=== PATIENT | female | born 1945 | race Two or more races ===

== ENCOUNTER 2024-08-13 15:43 | Emergency (ER) | payer MEDICARE, MEDICAID, SELFPAY ==
[2024-08-13 15:53] VITALS: BP 70/45; BP 80/45; PULSE 64; RESP 16; TEMP 36.7; O2SAT 98; BMI 26.5
--- NOTE | 2024-08-13 15:58 | EKG_ITS ---
[facility] Test Date: 2024-08-13 Pat Name: LAINA COYNE Department: Room: - Gender: Female Gasfitter: : 1945 Requested By: ED Temporary Provider Order Number: [id number] Reading MD: ED Temporary Provider Measurements Intervals [place] Rate: 57 P: 74 DE: 169 QRS: -30 QRSD: 99 T: 76 QT: 420 QTc: 411 Interpretive Statements SINUS BRADYCARDIA BORDERLINE LEFT AXIS DEVIATION [QRS AXIS < -20] NONSPECIFIC ST & T-WAVE ABNORMALITY Compared to ECG 03/15/2022 11:45:41 T-wave abnormality now present Sinus rhythm no longer present Left ventricular hypertrophy no longer present ST (T wave) deviation no longer present /store/S0/[id number]
--- NOTE | 2024-08-13 15:58 | XR_ITS ---
Examination: AP chest single view Technique: AP portable upright chest single view Exam date and time: August 13, 2024 1633 hrs. Indications: Hypotension altered mental status today. Findings: Mild prominence left ventricle No aspiration pneumonia Reduced inspiratory effort No pulmonary edema Impression: No aspiration pneumonia
[2024-08-13] MEDS: SODIUM CHLORIDE 0.9% 1000 ML 1,000 ML 999 ML IV (16:23)
--- NOTE | 2024-08-13 16:27 | XR_ITS ---
Examination: CT brain head without contrast. 2-D sagittal coronal reconstructions Date and time of exam:August 13, 2024 at 1644 hrs. Comparison 05/05/2024 Indications: Confusion altered mental status today CTDI: vol (mGy):47.7 DLP: (mGycm):193 Technique: Multiple CT axial sections of the brain have been obtained, 5 mm slice thickness. Contrast has not been administered. 2-D sagittal, coronal reconstructions have been obtained Low dose protocols were performed. One or more of the following dose reduction techniques were used; automated exposure control, adjustment of the mA and/or KV according to patient size, use of iterative reconstruction technique. Findings: No significant ventricular enlargement. Intra-axial or extra-axial hemorrhage density is not seen. No mass effect or midline shift Basal cisterns are not remarkable. Fourth ventricle is midline. Cranial vault intact. Impression: Negative for acute hemorrhage, mass effect or midline shift Advise clinical correlation follow-up accordingly
--- NOTE | 2024-08-13 16:29 | EDNOTE_ITS ---
ED Dizzyness RME/HPI General Chief Complaint: Dizziness Stated Complaint: DISORIENTED WITH HYPOTENSION; HX PARKINSONS/DAREK Time Seen by Provider: 08/13/24 16:10 Arrival date/time: 08/13/24 15:43 This is a 79-year-old female that is brought in by granddaepi Katz who is a caregiver. Per caregiver patient was sitting at the dining room table and she was about to move her grandmother back to her room and she was confused. Patient also was very weak. At the time granddaughter checked her blood pressu re and it was low at 70/42. Patient has baseline dementia and Parkinson's but she was more disoriented than usual. Patient denies any other symptoms prior to this episode. Upon arrival to the emergency room patient is hypotensive. There is no focal deficits. Patient has a history of Parkinson's dementia, high blood pressure, diabetes, hyperlipidemia, diabetic retinopathy,. Related Data Home Medications ?Medication ?Instructions ?Recorded ?Confirmed glipizide 10 mg tablet 10 mg PO BID 04/22/18 09/18/21 levothyroxine 50 mcg capsule 50 mcg PO QDAY 04/22/18 09/18/21 aspirin 81 mg tablet,delayed 81 mg PO QDAY 09/18/21 09/18/21 release celecoxib 200 mg capsule 200 mg PO BIDWM 09/18/21 09/18/21 ferrous sulfate 325 mg (65 mg 325 mg PO QDAY 09/18/21 09/18/21 iron) tablet (FeroSul) gabapentin 300 mg capsule 300 mg PO BID 09/18/21 09/18/21 lisinopril 20 mg tablet 20 mg PO QDAY 09/18/21 09/18/21 oxcarbazepine 300 mg tablet 1 mg PO TID 09/18/21 09/18/21 pravastatin 10 mg tablet 10 mg PO QDAY 09/18/21 09/18/21 Previous Rx's ?Medication ?Instructions ?Recorded levofloxacin 750 mg tablet 750 mg PO QDAY #7 tabs 09/24/21 methylprednisolone 4 mg tablets in 4 mg PO QAM #21 tabs 03/15/22 a dose pack (Medrol (Triston)) bisacodyl 10 mg rectal suppository 10 mg IA .Twice daily PRN 05/23/24 (Dulcolax (bisacodyl)) constipation #12 ea magnesium hydroxide 400 mg/5 mL 20 ml PO TID PRN constipation #355 05/23/24 oral suspension (Milk of Magnesia) mL cefuroxime axetil 500 mg tablet 500 mg PO BID #14 tabs 06/02/24 Allergies Allergy/AdvReac Type Severity Reaction Status Date / Time No Known Allergies Allergy Verified 08/13/24 15:46 Review of Systems Review of Systems Systems Reviewed: All systems reviewed, normal except as documented Past Medical History Past Medical History CARDIAC: Positive Hypercholesterolemia and Hypertension; Negative Cardiac Disorders or Congestive Heart Failure RESPIRATORY: Negative Chronic Obstructive Pulmonary Disease (COPD) or Asthma GENITOURINARY: Negative Renal Disease ENDOCRINE: Positive Diabetes Mellitus Type 2 and Hypothyroidism; Negative Diabetes Mellitus Type 1 HEMATOLOGIC: Negative Sickle Cell Disease Family History FAMILY HISTORY: Positive Family Cardiac Disorders Surgical History SURGICAL: Positive Section Social History SMOKING STATUS: Never smoker SECOND HAND EXPOSURE: No SUBSTANCE USE: does not use ED Exam General General appearance: Present alert and in no apparent distress Head Head exam: Present atraumatic Eye Eye exam: Present normal appearance, PERRL and EOMI ENT ENT exam: Present normal exam, normal oropharynx and mucous membranes moist Neck Neck exam: Present normal inspection, full ROM and trachea midline Chest Chest inspection: Present normal inspection and symmetric chest wall rise Respiratory Respiratory exam: Present normal lung sounds bilaterally Cardiovascular Cardiovascular exam: Present regular rate, normal rhythm and normal heart sounds Abdominal Exam Abdominal exam: Present soft Extremities Exam Extremities exam: Present normal inspection and full ROM Back Exam Back exam: Present normal inspection and full ROM Neurological Exam Neurological exam: Present alert, oriented X3 and CN II-XII intact Psychiatric Psychiatric exam: Present normal affect and normal mood Skin Skin exam: Present warm, dry, intact and normal color Course Quality Measures none Orders Category Date Time Status EKG (ED ONLY) *Do not use* NOW Care 08/13/24 16:07 Completed IV [Insert IV] STAT Care 08/13/24 16:13 Completed In and Out Catheter X1 Care 08/13/24 17:[address] head/brain wo con Stat Exams 08/13/24 16:27 Completed EKG (ED Only) Stat Exams 08/13/24 15:58 Draft XR chest 1V portable Stat Exams 08/13/24 15:58 Completed B-Type Natriuretic Peptide Stat Lab 08/13/24 16:57 Completed CBC Stat Lab 08/13/24 16:57 Completed Comprehensive Metabolic Panel Stat Lab 08/13/24 16:57 Completed INR [Prothrombin Time with INR] Stat Lab 08/13/24 16:57 Completed Troponin I Stat Lab 08/13/24 16:57 Completed Urinalysis Stat Lab 08/13/24 18:07 Completed Urine Culture Stat Lab 08/13/24 18:04 Completed Sodium Chloride 0.9% 1000 ml [Ns] 1,000 ml Med 08/13/24 16:13 Discontinued IV 999 mls/hr Vital Signs Vital signs: Vital Signs Temperature 98.1 F 08/13/24 15:53 Pulse Rate 64 08/13/24 15:53 Respiratory Rate 16 08/13/24 15:53 Blood Pressure 70/45 L 08/13/24 15:53 Pulse Oximetry (%) 98 08/13/24 15:53 Oxygen Delivery Method Room Air 08/13/24 15:53 Procedures -ED EKG Interpretation #1: Date of EK08/13/24 Time of EK:15 Rate: 57 Interpretation: Interpreted by me (Sinus bradycardia with borderline left axis deviation) EKG Impression: Normal sinus rhythm, No ectopy and Normal intervals Dizziness MDM Narrative MDM Narrative:: ct head shows: Findings: No significant ventricular enlargement. Intra-axial or extra-axial hemorrhage density is not seen. No mass effect or midline shift Basal cisterns are not remarkable. Fourth ventricle is midline. Cranial vault intact. Impression: Negative for acute hemorrhage, mass effect or midline shift Advise clinical correlation follow-up accordingly Chest x ray: Findings: Mild prominence left ventricle No aspiration pneumonia Reduced inspiratory effort No pulmonary edema Impression: No aspiration pneumonia Patient was hypotensive on arrival but was given a liter of IV fluids and now seems to have resolved. Patient does take blood pressure medication at home. I advised family to take blood pressure at home different times the day because maybe her blood pressure medication may need to be adjusted. CBC had a white count of 9.8 hemoglobin of 12.6 and a hematocrit of 35.5 neutrophil 86 BMP had a sodium of 130 and a chloride of 93. Otherwise BMP unremarkable urine showed some bacteria which we can culture but no RBCs no white blood cells no leukocyte Estrace. Per patient granddaughter she did not eat breakfast today and sometimes he have to fight with her to drink fluids. I encouraged her to drink fluids such as water or juice throughout the day. I explained at length to go over medications with primary provider. Patient mental status at baseline. Patient talking to staff and stating she feels better. Blood pressure is 120/90. I explained to family at length that medications needed to be reviewed with primary provider because maybe they may need to change some of the blood pressure medications given to patient. Patient data External records reviewed:: [facility] previous records Clinical information provided by:: patient Social determinants that could affect healthcare access:: none Patient has the following chronic illnesses:: see note How is presenting disease/condition affected by chronic disease/condition?: exacerbated by Evaluation data The following diagnostics were reviewed and interpreted by me:: lab results, radiology exam(s) and EKG tracing(s) Lab and/or radiology exams considered but not ordered:: none Interpretation Summary: see note Medications / Prescriptions Medications or Prescriptions considered but not ordered:: none Medication administrations:: Medication Administration History Discontinued Medications Sodium Chloride (Ns) 1,000 mls @ 999 mls/hr IV .Q1H1M ONE Stop: 08/13/24 17:13 Last Infusion: 08/13/24 18:06 Dose: Infused Documented By: Admin: 08/13/24 16:23 Dose: 999 mls/hr Documented By: JACQUELINE see [facility] Consultations Consultation(s) initiated? (list below): No Diagnosis Most likely diagnosis given after review of the tests above:: dehydration or perhaps too much blood pressure medication Admission Indicated Admission indicated?: not indicated Admission Request Was there a request for admission?: No Disposition Plan Disposition Plan: Discharge Discharge Attestation Discharge Attestation: The patient and all family members were given an opportunity to ask questions and understood the discharge instructions. Discharge instructions specifically effects, indications for sooner follow up or return to the emergency department, and the expected course of current diagnosis. Patient condition: Stable Discharge Plan Plan Patient Disposition: HOME (Self Care) Patient condition on transfer: Stable Prescriptions/Referrals Prescriptions/Med Rec: No Action levothyroxine 50 mcg Capsule 50 mcg PO QDAY glipizide 10 mg Tablet 10 mg PO BID celecoxib 200 mg capsule 200 mg PO BIDWM Patient Comments: TAKE 1 CAPSULE BY MOUTH TWICE DAILY WITH FOOD lisinopril 20 mg tablet 20 mg PO QDAY Patient Comments: TAKE 1 TABLET BY MOUTH DAILY oxcarbazepine 300 mg tablet 1 mg PO TID Patient Comments: TAKE 1 TABLET BY MOUTH THREE TIMES DAILY aspirin 81 mg tablet,delayed release (DR/EC) 81 mg PO QDAY Patient Comments: TAKE 1 TABLET BY MOUTH EVERY DAY pravastatin 10 mg tablet 10 mg PO QDAY Patient Comments: TAKE 1 TABLET BY MOUTH EVERY DAY ferrous sulfate [FeroSul] 325 mg (65 mg iron) tablet 325 mg PO QDAY Patient Comments: TAKE 1 TABLET BY MOUTH EVERY DAY gabapentin 300 mg capsule 300 mg PO BID Patient Comments: TAKE 1 CAPSULE BY MOUTH TWICE DAILY levofloxacin 750 mg tablet 750 mg PO QDAY Qty: 7 0RF methylprednisolone [Medrol ([place])] 4 mg tablets,dose pack 4 mg PO QAM Qty: 21 0RF bisacodyl [Dulcolax (bisacodyl)] 10 mg suppository 10 mg IA .Twice daily PRN (Reason: constipation) Qty: 12 0RF magnesium hydroxide [Milk of Magnesia] 400 mg/5 mL suspension 20 ml PO TID PRN (Reason: constipation) Qty: 355 0RF cefuroxime axetil 500 mg tablet 500 mg PO BID Qty: 14 0RF Referrals: Arian Hong MD [Primary Care Provider] - In 1 week Problem List Clinical Impression: Dehydration, Acute hyponatremia Patient/Caregiver Discharge Instructions Discharge Activity: activity as tolerated Education Materials: ED Dehydration (Adult) Additional Instructions: Follow-up with primary provider in 1 to 2 days. Come back to the emergency room if symptoms change or worsen. Discussed with primary provider about episode of low blood pressure. Print Language: Monegasque Stand Alone Forms: Zenia Award Info., Patient Portal Info Letter PA/ANGIE Supervising Physician PA/FILM CUTTER Supervising Physician: jose alberto
[2024-08-13 16:30] VITALS: BP 99/57; PULSE 56; RESP 16; O2SAT 96
[2024-08-13 16:53] LABS: Basophils % (Auto) 0 % (0-2.5); Eosinophils % (Auto) 0 % (0-10); Hematocrit 35.5 % (36.0-46.0); Hemoglobin 12.6 g/dL (12.0-16.0); Immature Granulocytes % (Auto) 0 % (0-0); Immature Granulocytes Auto 0.02 Thou/mm3 (0.00-0.00); Lymphocytes # (Auto) 0.6 Thou/mm3 (1.0-4.8); Lymphocytes % (Auto) 6 % (10-50); Mean Corpuscular HGB Conc 35.5 g/dl (31.0-37.0); Mean Corpuscular Hemoglobin 31.3 pg (25.0-35.0); Mean Corpuscular Volume 88 fL (80-100); Monocytes # (Auto) 0.7 Thou/mm3 (0.0-0.8); Monocytes % (Auto) 7 % (0-12); Neutrophils # (Auto) 8.4 Thou/mm3 (1.8-7.7); Neutrophils % (Auto) 86 % (37-80); Nucleated Red Blood Cell % 0 /100 WBC (0); Platelet Count 158 Thou/mm3 (140-440); RDW Standard Deviation 41.9 fL (36.4-46.3); Red Blood Count 4.02 Miln/mm3 (4.00-5.20); White Blood Count 9.8 Thou/mm3 (3.6-11.0)
[2024-08-13 17:03] LABS: Alanine Aminotransferase 16 U/L (10-49); Albumin, Serum 4.8 gm/dL (3.4-4.8); Albumin/Globulin Ratio 2.1 (1.2-2.2); Alkaline Phosphatase 107 U/L (46-116); Anion Gap 8 (7-16); Aspartate Amino Transferase 21 U/L (0-34); BUN/Creatinine Ratio 15 Ratio (12-20); Bilirubin,Total 0.5 mg/dL (0.3-1.2); Blood Urea Nitrogen 15 mg/dL (9-23); Calcium 9.7 mg/dL (8.3-10.6); Calcium (Corrected) 9.7 mg/dL (8.5-10.1); Carbon Dioxide 28.6 mMol/L (20.0-31.0); Chloride 93 mMol/L (98-107); Estimated Creatinine Clearance 41.3 mL/min (>60); Globulin 2.3 gm/dL (2.3-3.5); Glucose 148 mg/dL (74-106); Osmolality,Calculated 264 (275-295); Potassium 4.2 mMol/L (3.4-5.1); Sodium 130 mMol/L (136-145); Total Protein 7.1 gm/dL (5.7-8.2); Troponin I < 0.020 ng/mL (0.0-0.045); eGFR 58 See Note
[2024-08-13 17:24] LABS: B-Type Natriuretic Peptide 89 pg/mL (0-100)
[2024-08-13 17:29] LABS: Prothrombin Time 11.3 Seconds (9.0-12.2)
[2024-08-13 18:23] LABS: Collection Type, Urine Clean Catch; RBC,Urine 0 /hpf (0-3); WBC,Urine 0 /hpf (0-5)
[2024-08-13 18:38] LABS: Bacteria,Urine 4+; Bilirubin,Urine Negative (Negative); Blood,Urine Negative (Negative); Clarity,Urine Turbid (Clear/Hazy); Color,Urine Yellow (Lt Yel-Yel); Glucose, Urine Negative (Negative); Hyaline Casts,Urine < 1 /hpf (0-1); Ketones,Urine Negative (Negative); Leukocyte Esterase,Urine Negative (Negative); Nitrite,Urine Negative (Negative); Protein,Urine Negative (Neg - Trace); Specific Gravity,Urine 1.009 (1.001-1.035); Squamous Epithelial Cell,Urine 1 /hpf (0-5); Urobilinogen,Urine Negative mg/dL (0.0-1.0)
== END 2024-08-13 20:31 | disposition home or self-care (01) ==
PROVIDERS: Nurse Practitioner Family; Emergency Provider Emergency Medicine; PCP Family Medicine
DX: E86.0 Dehydration (principal); E87.1 Hypo-osmolality and hyponatremia; G20.A1 Parkinson's disease without dyskinesia, without mention of fluctuations; F02.80 Dementia in other diseases classified elsewhere, unspecified severity, without behavioral disturbance, psychotic disturbance, mood disturbance, and anxiety; E11.319 Type 2 diabetes mellitus with unspecified diabetic retinopathy without macular edema; R00.1 Bradycardia, unspecified; I95.9 Hypotension, unspecified; Z79.84 Long term (current) use of oral hypoglycemic drugs; Z79.52 Long term (current) use of systemic steroids; E78.00 Pure hypercholesterolemia, unspecified; I10 Essential (primary) hypertension
CPT/HCPCS: 51701; 36415; 70450; 71045; 80053; 81001; 83880; 84484; 85025; 85610; 87077; 87086; 87186; 93005; 96360; 96361; 99284; J7030

== ENCOUNTER 2024-08-29 10:58 | Day surgery (SDC) | payer MEDICARE, MEDICAID, SELFPAY ==
--- NOTE | 2024-08-26 12:44 | EKG_ITS ---
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
[2024-08-26 14:31] VITALS: BMI 26.2
[2024-08-26 15:21] LABS: Basophils % (Auto) 1 % (0-2.5); Eosinophils # (Auto) 0.2 Thou/mm3 (0.0-0.5); Eosinophils % (Auto) 3 % (0-10); Hematocrit 33.8 % (36.0-46.0); Immature Granulocytes % (Auto) 0 % (0-0); Immature Granulocytes Auto 0.02 Thou/mm3 (0.00-0.00); Lymphocytes # (Auto) 1.1 Thou/mm3 (1.0-4.8); Lymphocytes % (Auto) 17 % (10-50); Mean Corpuscular HGB Conc 35.5 g/dl (31.0-37.0); Mean Corpuscular Hemoglobin 31.3 pg (25.0-35.0); Mean Corpuscular Volume 88 fL (80-100); Monocytes # (Auto) 0.5 Thou/mm3 (0.0-0.8); Monocytes % (Auto) 8 % (0-12); Neutrophils # (Auto) 4.3 Thou/mm3 (1.8-7.7); Neutrophils % (Auto) 70 % (37-80); Nucleated Red Blood Cell % 0 /100 WBC (0); Platelet Count 148 Thou/mm3 (140-440); RDW Standard Deviation 40.4 fL (36.4-46.3); Red Blood Count 3.83 Miln/mm3 (4.00-5.20); White Blood Count 6.2 Thou/mm3 (3.6-11.0)
[2024-08-26 15:33] LABS: Anion Gap 7 (7-16); BUN/Creatinine Ratio 17 Ratio (12-20); Blood Urea Nitrogen 12 mg/dL (9-23); Calcium 9.4 mg/dL (8.3-10.6); Chloride 94 mMol/L (98-107); Creatinine (Component) 0.7 mg/dL (0.6-1.3); Estimated Creatinine Clearance 58.6 mL/min (>60); Glucose 60 mg/dL (74-106); Osmolality,Calculated 258 (275-295); Potassium 4.1 mMol/L (3.4-5.1); Sodium 130 mMol/L (136-145); eGFR > 60 See Note
[2024-08-26 15:35] LABS: COVID-19 Antigen (In-House) Negative (Negative)
[2024-08-26 15:41] LABS: INR 1.1 (0.9-1.3); Partial Thromboplastin Time 26.5 Seconds (22.0-36.0); Prothrombin Time 11.5 Seconds (9.0-12.2)
[2024-08-29] VITALS (13 sets, daily range): BP systolic 95–191; BP diastolic 68–93; PULSE 48–62; RESP 11–21; TEMP 36.4–36.6; O2SAT 96–99
[2024-08-29] MEDS: DIAZEPAM 5 MG TABLET PO (11:57)
--- NOTE | 2024-08-29 12:48 | ESOP_ITS ---
Cardiac Cath Procedure Procedure Narrative Date of the procedure 04/29/2025 Title of the procedure 1. Left heart catheterization 2. Left coronary angiogram 3. Right coronary angiogram 4. Left ventriculogram 5. Conscious sedation 6. Radiographic interpretation supervision 7. Ultrasound guidence for Right radial access Indication for the procedure This is a 79-year-old female with past medical history of hypertension hyperlipidemia Diabetes planning to undergo gallbladder surgery Patient did undergo further evaluation with stress testing which shows inferolateral ischemia Cardiac catheter cholangiogram recommended Procedure This is done in the cardiac lab under continuous electrocardiographic monitoring Intermittent blood pressure monitoring right radial arterial access obtained using modified Seldinger technique 6 Mexican radial sheath was placed under ultrasound guidence TIG catheter was used for selective injection of the Left coronary artery TIG cather was used for selective injection of the Right coroanry artery TIG cather was used for LV gram Findings Hemodynamics Left ventricular systolic function is 55% Left ventricular end-diastolic pressure is 16 mmHg Gradient across the aortic valve is 0 mm gradient Coronary anatomy Right dominance Left main coronary artery is normal Left anterior descending artery is luminal irregularities in the mid to distal region Diagonal vessel is showing luminal regularities Left circumflex artery is chronically occluded 100% at the proximal region Obtuse marginal vessel is not visualized Right coronary artery is luminal irregularities Posterior descending artery is 90% lesion in the proximal region Right coronary artery supplies occluded circumflex with collaterals 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
--- NOTE | 2024-08-29 14:21 | PC.NURSE ---
Per Cynthia Katz patients blood pressure is very labile and is happy with blood pressure if its under 200 systolic. Claims 3 weeks ago patient was brought to the emergency department with hypotension and AMS; systolic BP was in the 70's with no change in her medications.
== END 2024-08-29 16:00 | disposition home or self-care (01) ==
PROVIDERS: PCP Family Medicine; Referring Provider Internal Medicine; Visit Provider Internal Medicine
PROC: (CPT 93458; principal; 2024-08-29 13:00)
DX: I25.118 Atherosclerotic heart disease of native coronary artery with other forms of angina pectoris (principal); I10 Essential (primary) hypertension; E78.5 Hyperlipidemia, unspecified; Z01.810 Encounter for preprocedural cardiovascular examination; E11.9 Type 2 diabetes mellitus without complications
CPT/HCPCS: 93458; 36415; 80048; 85025; 85610; 85730; 87811; 93005; 99152; 99153; A4216; A4649; C1887; C1894; J0171; J0461; J0583; J1643; J2250; J2310; J2371; J3010; J3490; Q9967; A9270; J2305

== ENCOUNTER 2024-09-01 06:30 | Day surgery (SDC) | payer MEDICARE, MEDICAID, SELFPAY ==
[2024-08-31 09:18] VITALS: BMI 27.8
[2024-08-31 11:12] LABS: Basophils % (Auto) 0 % (0-2.5); Eosinophils # (Auto) 0.2 Thou/mm3 (0.0-0.5); Eosinophils % (Auto) 3 % (0-10); Hematocrit 34.5 % (36.0-46.0); Hemoglobin 11.9 g/dL (12.0-16.0); Immature Granulocytes % (Auto) 0 % (0-0); Immature Granulocytes Auto 0.01 Thou/mm3 (0.00-0.00); Lymphocytes # (Auto) 0.9 Thou/mm3 (1.0-4.8); Lymphocytes % (Auto) 16 % (10-50); Mean Corpuscular HGB Conc 34.5 g/dl (31.0-37.0); Mean Corpuscular Hemoglobin 30.8 pg (25.0-35.0); Mean Corpuscular Volume 89 fL (80-100); Monocytes # (Auto) 0.4 Thou/mm3 (0.0-0.8); Monocytes % (Auto) 8 % (0-12); Neutrophils # (Auto) 3.9 Thou/mm3 (1.8-7.7); Neutrophils % (Auto) 72 % (37-80); Nucleated Red Blood Cell % 0 /100 WBC (0); Platelet Count 133 Thou/mm3 (140-440); RDW Standard Deviation 41.8 fL (36.4-46.3); Red Blood Count 3.86 Miln/mm3 (4.00-5.20); White Blood Count 5.4 Thou/mm3 (3.6-11.0)
[2024-08-31 11:18] LABS: Prothrombin Time 11.3 Seconds (9.0-12.2)
[2024-08-31 11:31] LABS: Alanine Aminotransferase 10 U/L (10-49); Albumin, Serum 4.6 gm/dL (3.4-4.8); Albumin/Globulin Ratio 1.9 (1.2-2.2); Alkaline Phosphatase 97 U/L (46-116); Anion Gap 8 (7-16); Aspartate Amino Transferase 17 U/L (0-34); BUN/Creatinine Ratio 20 Ratio (12-20); Bilirubin,Total 0.4 mg/dL (0.3-1.2); Blood Urea Nitrogen 16 mg/dL (9-23); Calcium 9.6 mg/dL (8.3-10.6); Calcium (Corrected) 9.6 mg/dL (8.5-10.1); Carbon Dioxide 28.7 mMol/L (20.0-31.0); Chloride 96 mMol/L (98-107); Creatinine (Component) 0.8 mg/dL (0.6-1.3); Estimated Creatinine Clearance 48.6 mL/min (>60); Globulin 2.4 gm/dL (2.3-3.5); Glucose 134 mg/dL (74-106); Osmolality,Calculated 269 (275-295); Potassium 4.3 mMol/L (3.4-5.1); Sodium 133 mMol/L (136-145); eGFR > 60 See Note
--- NOTE | 2024-08-31 11:36 | SUR.PREOP ---
Pt has parkinson's and dementia that affects pt's short term memory. Pt answered correctly, her name, date and what surgery she is having, granddaughter stated pt forgets when and what meds to take and forgets to eat so pt moved in with family.
--- NOTE | 2024-08-31 14:38 | SUR.PREOP ---
Pt's daughter Luanne Gillette phone # [phone], stated if need it she is available by phone or if need it to come in she will come.
--- NOTE | 2024-08-31 14:40 | SUR.PREOP ---
Cardiac history and records reviewed with Dr Hall.
[2024-09-01] VITALS (8 sets, daily range): BP systolic 156–169; BP diastolic 81–90; PULSE 55–76; RESP 12–17; TEMP 36.4–36.6; O2SAT 98–100; BMI 27.8
--- NOTE | 2024-09-01 09:25 | ESOP_ITS ---
Date of Procedure 09/01/24 Pre Op Diagnosis Symptomatic cholelithiasis Post Op Diagnosis Cholelithiasis with cholecystitis Procedure Laparoscopic cholecystectomy Findings Moderately distended gallbladder with gallstones and chronic cholecystitis Procedure Description Patient was brought into the operating room in supine position. After adm inistration of general endotracheal anesthesia abdomen was prepped and draped in standard surgical manner. A Veress needle was inserted through the umbilicus and pneumoperitoneum was obtained up to 15 mmHg. The Veress needle was then removed, a 5 mm supraumbilical incision was made and the 5mm trocar was inserted. Laparoscopic camera was placed. Under direct visualization a laparoscopic camera a 10 mm trocar was placed in subxiphoid and two 5 mm trocars placed in right upper quadrant. The gallbladder was identified and was noted to be moderately distended with gallstones and chronic cholecystitis. It was retracted cephalad and laterally. Dissection started near the infundibulum of gallbladder where cystic duct and gallbladder junction clearly identified. The cystic duct was circumferentially dissected off the peritoneum and surrounding inflammatory tissue. The critical view of safety was clearly demonstrated. Cystic duct was then divided between 2 endoclips proximally and one distally. The cystic artery was similarly dissected and divided. The gallbladder was then from the liver bed using electrocautery. The gallbladder was then placed inside an Endo Catch and removed from the abdomen utilizing subxiphoid trocar site. The area was copiously and thoroughly washed and irrigated, all the fluid was suctioned and the suction fluid returned clear. Hemostasis achieved using electrocautery. Endoclips noted be in place and intact without any bleeding or any leakage. Hemostasis was adequate and satisfactory. The subxiphoid trocar sites fascial defect was closed with 0 Vicryl using Endo Closure device. Instruments and trocars removed, pneumoperitoneum was evacuated and the incisions closed with 4-0 Monocryl in subcuticular fashion. Instrument needle and sponge counts were all reported to be correct X2. Patient tolerated the procedure well, was extubated, breathing spontaneously and without difficulty and was transferred to postanesthesia care in stable condition. Anesthesia GETA and local Pathology / specimen Other (Gallbladder and contents) Estimated Blood Loss 10 Condition Stable Disposition PACU Surgeon Acosta Juarez MD Surgical Staff Operation Date: 09/01/24 08:30 Case Staff Anesthesiologist: Rocky Hall RNemergency department technician: Regine Gusman
--- NOTE | 2024-09-01 09:31 | SUR.PHASEI ---
0931: Pt. wakes to name then drifts back to sleep, vitals stable, breathing unlabored, no complaint of pain or nausea, x4 dermabond sites to ABD CDI, no active bleed noted, report received from MD Hall and Zulay COLLADO.
--- NOTE | 2024-09-01 10:30 | SUR.PHASEII ---
1030: Pt. AAOx4, vitals stable, breathing unlabored, no complaint of pain or nausea, x4 dermabond sites to ABD CDI, no active bleed noted, pt. tolerated sips of water well, pt. ambulated to wheelchair with steady gait and no assist, no complications. Gave discharge instructions to the pt. and her ride using translator and interpreter, both verbalized understanding and had no further questions. Pt. left with all personal belongings.
--- NOTE | 2024-09-02 17:23 | PD.ANESPROG ---
Documentation for date of: 09/02/24 POST ANESTHESIA NOTE: Patient had GETA for lap cholecystectomy yesterday. Pre-op, she was accompanied by her grand daughter and her daughter was on the phone. She has h/o CAD, on medical mx, cardiac cleared, and also h/o Parkinson. I discussed with them the available cardiology report about her CAD and possible risk of intra-op and post op cardiac event including VT and they agreed to proceed. I also noted Reglan on her medication list, which the grand daughter endorsed that she takes daily for nausea. I educated her that Reglan could worsen her Parkinson sx and that they should discuss this with her PCP and neurologist. I just called the grand daughter for follow up and she denied patient having any problems from anesthesia and had no further questions. Rocky Hall MD Anesthesia Progress Note Progress Note Most recent Vital Signs: Last Vital Signs Temp 97.7 F 09/01/24 10:26 Pulse 68 09/01/24 10:26 Resp 16 09/01/24 10:26 BP 163/88 H 09/01/24 10:26 Pulse Ox 100 09/01/24 10:26 O2 Flow Rate 2 09/01/24 09:41
== END 2024-09-01 10:30 | disposition home or self-care (01) ==
PROVIDERS: PCP Family Medicine; Referring Provider Surgery; Visit Provider Surgery
PROC: 0FT44ZZ Resection of Gallbladder, Percutaneous Endoscopic Approach (ICD-10-PCS; CPT 47562; principal; 2024-09-01 08:30)
DX: K80.10 Calculus of gallbladder with chronic cholecystitis without obstruction (principal)
CPT/HCPCS: 47562; 36415; 80053; 85025; 85610; A4217; A4649; J0131; J0694; J1100; J2371; J2704; J2710; J3010; J3490; J1596; J1805

== ENCOUNTER 2025-04-24 06:19 | Emergency (ER) | payer MEDICARE, MEDICAID, SELFPAY ==
[2025-04-24 06:28] VITALS: BP 193/87; BP 199/96; PULSE 69; RESP 18; TEMP 37.1; O2SAT 96; BMI 20.9
--- NOTE | 2025-04-24 06:29 | EKG_ITS ---
[facility] Test Date: 2025-04-24 Pat Name: LAINA COYNE Department: Room: - Gender: Female Time Broker: : 1945 Requested By: Tj Chand Order Number: [id number] Reading MD: Tj Chand Measurements Intervals [place] Rate: 61 P: 31 SC: 149 QRS: -19 QRSD: 109 T: 31 QT: 388 QTc: 393 Interpretive Statements SINUS RHYTHM POSSIBLE ANTERIOR MYOCARDIAL INFARCTION , PROBABLY OLD [30 ms Q WAVE IN V3/V4, OR R < 0.2 mV IN V4] Compared to ECG 08/26/2024 14:12:23 Sinus bradycardia no longer present Myocardial infarct finding still present /store/S0/[id number]/ecg/[id number].pdf
--- NOTE | 2025-04-24 06:29 | XR_ITS ---
Examination: CT maxillofacial, without intravenous contrast. 2-D sagittal reconstructions. 3-D reconstructions. Date and time of exam:April 24, 2025, 0714 hrs. Indications: Patient fell out of bed today with injury to the face, facial pain CTDI: vol (mGy):27.3 DLP: (mGycm):527 Technique: Multiple axial images of maxillofacial region, 3.0 mm slice thickness. 2-D sagittal and coronal reconstructions. 3-D reconstructions. Low dose protocols were performed. One or more of the following dose reduction techniques were used; automated exposure control, adjustment of the mA and/or KV according to patient size, use of iterative reconstruction technique. Findings: Frontal bone frontal sinuses intact. Orbital rims intact. The optic globes exhibit symmetry. There is soft tissue swelling lateral and above the left orbit and adjacent to the left frontal bone No nasal bone fracture No depression zygomatic arches. Pterygoid plates maxilla intact The mandible is severely obscured by patient motion, no gross fracture Impression: Limited study No acute facial fracture depicted.
--- NOTE | 2025-04-24 06:29 | XR_ITS ---
Examination: CT brain head without contrast. 2-D sagittal coronal reconstructions Date and time of exam:April, 0714 hrs. Comparison August 13, 2024 Indications: Patient fell out of bed today with injury to the head, head pain. CTDI: vol (mGy):46.9. DLP: (mGycm):916. Technique: Multiple CT axial sections of the brain have been obtained, 5 mm slice thickness. Contrast has not been administered. 2-D sagittal, coronal reconstructions have been obtained Low dose protocols were performed. One or more of the following dose reduction techniques were used; automated exposure control, adjustment of the mA and/or KV according to patient size, use of iterative reconstruction technique. Findings: No significant ventricular enlargement. Old infarcts in the bilateral basal ganglia Intra-axial or extra-axial hemorrhage density is not seen. No mass effect or midline shift Basal cisterns are not remarkable. Fourth ventricle is midline. Cranial vault intact. Impression: Negative for acute hemorrhage, mass effect or midline shift
--- NOTE | 2025-04-24 06:29 | XR_ITS ---
Examination: CT cervical spine without contrast 2-D sagittal reconstructions 2-D coronal reconstructions 3-D reconstructions. Exam date and time:April 24, 2025, 0714 hrs. Indications: Ground-level fall today with injury to the neck, neck pain CTDI:vol (mGy) 14.8 DLP: (mGycm) 287 Technique: Multiple 2 mm axial sections of the cervical spine have been obtained. The coronal and sagittal reconstructions have been obtained. 3-D reconstructions have been obtained. Low dose protocols were performed. One or more of the following dose reduction techniques were used; automated exposure control, adjustment of the mA and/or KV according to patient size, use of iterative reconstruction technique. Findings: Axial sections demonstrate intact base of the skull. C1 exhibit satisfactory relationship to the odontoid. No acute cervical vertebral body fracture seen. Alignment posterior spinous processes satisfactory. Impression: No acute cervical fracture.
--- NOTE | 2025-04-24 06:30 | EDRME_ITS ---
Rapid Medical Screening Exam [facility] Arrival date/time: 04/24/25 06:19 79-year-old female with a history of Parkinson's, dementia, hypertension presents to the emergency room with a chief complaint of a facial contusion after a ground-level fall that occurred 1 hour ago. Patient states she got up to use the restroom and does not remember how she fell. Family member states she found her on the ground but heard a loud thump. I have greeted and performed a focused initial assessment of this patient. A comprehensive ED assessment and evaluation of the patient, analysis of all test results, and completion of the medical decision making process will be conducted by additional ED providers. Chief Complaint: Head Injury Time Seen by Provider: 04/24/25 06:23 Vital signs: Vital Signs Temperature 98.7 F 04/24/25 06:28 Pulse Rate 69 04/24/25 06:28 Respiratory Rate 18 04/24/25 06:28 Blood Pressure 199/96 H 04/24/25 06:28 Pulse Oximetry (%) 96 04/24/25 06:28 Oxygen Delivery Method Room Air 04/24/25 06:28 Vital signs reviewed by provider: Yes
[2025-04-24 06:45] LABS: Basophils # (Auto) 0.0 Thou/mm3 (0.0-0.2); Basophils % (Auto) 1 % (0-2.5); Eosinophils # (Auto) 0.1 Thou/mm3 (0.0-0.5); Eosinophils % (Auto) 2 % (0-10); Hematocrit 35.5 % (36.0-46.0); Hemoglobin 12.4 g/dL (12.0-16.0); Immature Granulocytes Auto 0.01 Thou/mm3 (0.00-0.00); Lymphocytes # (Auto) 1.0 Thou/mm3 (1.0-4.8); Lymphocytes % (Auto) 18 % (10-50); Mean Corpuscular HGB Conc 34.9 g/dl (31.0-37.0); Mean Corpuscular Hemoglobin 31.5 pg (25.0-35.0); Mean Corpuscular Volume 90 fL (80-100); Monocytes # (Auto) 0.5 Thou/mm3 (0.0-0.8); Monocytes % (Auto) 9 % (0-12); Neutrophils # (Auto) 3.8 Thou/mm3 (1.8-7.7); Neutrophils % (Auto) 70 % (37-80); Nucleated Red Blood Cell # 0.00 Thou/mm3 (0.00-0.00); Nucleated Red Blood Cell % 0 /100 WBC (0); Platelet Count 145 Thou/mm3 (140-440); RDW Standard Deviation 38.5 fL (36.4-46.3); Red Blood Count 3.94 Miln/mm3 (4.00-5.20); White Blood Count 5.4 Thou/mm3 (3.6-11.0)
[2025-04-24 07:02] LABS: B-Type Natriuretic Peptide 113 pg/mL (0-100)
[2025-04-24 07:12] LABS: INR 1.0 (0.9-1.3); Partial Thromboplastin Time 24.6 Seconds (22.0-36.0); Prothrombin Time 11.4 Seconds (9.0-12.2)
[2025-04-24 07:14] LABS: Alanine Aminotransferase 9 U/L (10-49); Albumin, Serum 4.6 gm/dL (3.4-4.8); Albumin/Globulin Ratio 2.1 (1.2-2.2); Alkaline Phosphatase 80 U/L (46-116); Anion Gap 9 (7-16); Aspartate Amino Transferase 19 U/L (0-34); BUN/Creatinine Ratio 15 Ratio (12-20); Bilirubin,Total 0.4 mg/dL (0.3-1.2); Blood Urea Nitrogen 12 mg/dL (9-23); Calcium 9.6 mg/dL (8.3-10.6); Calcium (Corrected) 9.6 mg/dL (8.5-10.1); Carbon Dioxide 28.6 mMol/L (20.0-31.0); Chloride 97 mMol/L (98-107); Creatinine (Component) 0.8 mg/dL (0.6-1.3); Estimated Creatinine Clearance 62.3 mL/min (>60); Globulin 2.2 gm/dL (2.3-3.5); Glucose 83 mg/dL (74-106); Magnesium 2.1 mg/dL (1.6-2.6); Osmolality,Calculated 268 (275-295); Potassium 4.3 mMol/L (3.4-5.1); Sodium 135 mMol/L (136-145); Total Protein 6.8 gm/dL (5.7-8.2); Troponin I < 0.002 ng/mL (0.0-0.045); eGFR > 60 See Note
[2025-04-24 07:42] LABS: Collection Type, Urine Clean Catch; RBC,Urine 0 /hpf (0-3)
[2025-04-24 07:52] LABS: Bacteria,Urine 1+; Bilirubin,Urine Negative (Negative); Blood,Urine Negative (Negative); Clarity,Urine Clear (Clear/Hazy); Color,Urine Lt-Yellow (Lt Yel-Yel); Glucose, Urine Negative (Negative); Ketones,Urine Negative (Negative); Leukocyte Esterase,Urine Negative (Negative); Nitrite,Urine Negative (Negative); PH,Urine 6.5 (5.0-7.0); Protein,Urine Trace (Neg - Trace); Specific Gravity,Urine 1.016 (1.001-1.035); Squamous Epithelial Cell,Urine 5 /hpf (0-5); Urobilinogen,Urine Negative mg/dL (0.0-1.0); WBC,Urine 4 /hpf (0-5)
--- NOTE | 2025-04-24 08:02 | EDNOTE_ITS ---
<Statement entered by Sulma Brar MD - 04/24/25 14:40> I, Sulma Brar MD, have reviewed the history, exam, and assessment of the patient. I have evaluated the patient independently and agree with the plan of care documented by [ ]. All diagnostic studies were reviewed and discussed. I confirm the diagnosis as documented by the Resident. I was present during the Medical Decision Making for this patient. The patient's plan of care was created between myself and the Resident and consistent with our discussion of the patient's case. ED Head Injury RME/HPI General Chief complaint: Head Injury Stated complaint: FALL HEAD INJURY Time Seen by Provider: 04/24/25 06:23 Arrival date/time: 04/24/25 06:19 RME / HPI RME / HPI Narrative: 04/24/25 06:19 79-year-old female with a history of Parkinson's, dementia, hypertension presents to the emergency room with a chief complaint of a facial contusion after a ground-level fall that occurred 1 hour ago. Patient states she got up to use the restroom and does not remember how she fell. Family member states she found her on the ground but heard a loud thump. I have greeted and performed a focused initial assessment of this patient. A comprehensive ED assessment and evaluation of the patient, analysis of all test results, and completion of the medical decision making process will be conducted by additional ED providers. __ Mr. Camacho is a 79-year-old female with past medical history of hypertension, hypothyroidism, Parkinson's disease with dementia, multivessel coronary artery disease and diabetes mellitus who presented to [facility] emergency department on April 24, 2025 with a chief complaint of status post ground-level fall, patient's granddaughter at bedside assisted in providing history. Per patient she woke up earlier this morning to go to the bathroom when she fell on the ground, granddaughter heard a thump and found the patient lying on the ground with bruising around her face and they decided to come to the emergency department for further evaluation. Patient has history of multiple falls with the past mostly mechanical, no witnessed syncopal or seizure-like episodes noted by family. Patient has Parkinson's disease with dyskinesia follows up with a specialist, patient ambulates with a walker however this morning did not use her walker granddaughter reported that patient has dementia and is known to forget about using her walker at times. Otherwise patient had a cardiac catheterization done earlier this year in [place] by Dr. Wilkins which showed ejection fraction of 55%, chronically occluded circumflex, 90% PDA lesion she denies any palpitations dizziness otherwise. Related Data Home Medications ?Medication ?Instructions ?Recorded ?Confirmed glipizide 10 mg tablet 10 mg PO BID 04/22/18 levothyroxine 50 mcg capsule 50 mcg PO QDAY 04/22/18 0 08/31/24 lisinopril 20 mg tablet 20 mg PO BID 09/18/21 oxcarbazepine 300 mg tablet 1 mg PO TID 09/18/2108/31 pravastatin 10 mg tablet 10 mg PO QDAY 09/18/2108/31 aspirin 81 mg tablet,delayed 81 mg PO QDAY 08/26/24 release Held on 09/01/24. Instructions: Resume on 09/04/24. clonidine HCl 0.1 mg tablet 0.1 mg PO TID 08/26/24 donepezil 5 mg tablet 5 mg PO HS 08/26/24 08/31/24 labetalol 200 mg tablet 200 mg PO BID 08/26/2408/31 latanoprost 0.005 % eye drops 1 drp ophthalmic (eye) Q DAY 08/26/24 08/31/24 linaclotide 145 mcg capsule 145 mcg PO BID 08/26/24 (Linzess) metoclopramide HCl 10 mg tablet 10 mg PO AC 08/26/24 0 08/31/24 mirtazapine 15 mg disintegrating 15 mg PO HS 01/17/25 01/22/25 tablet ondansetron 4 mg disintegrating 4 mg PO TID PRN Nausea 08/26/24 08/31/24 tablet polyethylene glycol 3350 17 gram 17 g BID PRN Constipa tion 08/26/24 08/31/24 oral powder packet (Miralax) rotigotine 4 mg/24 hour 4 mg topical QDAY 08/26/24 0 08/31/24 transdermal 24 hour patch (Neupro) timolol 0.5 % eye drops 1 drp ophthalmic (eye) BID 0 08/26/24 08/31/24 hydrochlorothiazide 12.5 mg tablet 12.5 mg PO QAM 08/1108/31/24 Previous Rx's ?Medication ?Instructions ?Recorded docusate sodium 100 mg capsule 100 mg PO BID #40 caps 09/01/24 (Colace) hydrocodone 5 mg-acetaminophen 325 1 tab PO Q6H PRN pa in (scale score 09/01/24 mg tablet 7-10) #15 tabs Allergies Allergy/AdvReac Type Severity Reaction Status Date / Time No Known Allergies Allergy Verified 04/24/25 06:26 Review of Systems Review of Systems Systems Reviewed: All systems reviewed, normal except as documented Past Medical History Past Medical History CARDIAC: Positive Hypercholesterolemia and Hypertension; Negative Cardiac Disorders or Congestive Heart Failure RESPIRATORY: Negative Chronic Obstructive Pulmonary Disease (COPD) or Asthma GENITOURINARY: Negative Renal Disease ENDOCRINE: Positive Diabetes Mellitus Type 2 and Hypothyroidism; Negative Diabetes Mellitus Type 1 HEMATOLOGIC: Negative Sickle Cell Disease Family History FAMILY HISTORY: Positive Family Cardiac Disorders Surgical History SURGICAL: Positive Section Social History SMOKING STATUS: Never smoker SECOND HAND EXPOSURE: No SUBSTANCE USE: does not use ED Exam Narrative Physical exam: Physical Exam General: Awake and in no acute distress. Conversational and non-toxic appearing. HEENT: Normocephalic, atraumatic, mucous membranes moist. Significant bruising and minimal tenderness noted on the left side of the face. Heart: Regular rate and rhythm, no murmurs. Lungs: Clear to auscultation with no wheezing or crackles. Abdomen: Soft, nondistended, nontender, positive bowel sounds. ?No guarding or rebound tenderness. Neurologic: Alert and oriented x3, no gross neurological deficit, and patient able to move all 4 extremities. Extremities: No edema. Course Course Course Narrative: Patient seen in ER room 16, was moved from triage Extensive workup done in triage reviewed EKG shows sinus rhythm Rate 61, QTc 393 CBC: WBC 5.4, RBC 3.94, hemoglobin 12.4, hematocrit 35.5, platelet count 145 Coagulation panel: PT 11.4, INR 1.0, APTT 24.6 CMP: Sodium 135, potassium 4.3, chloride 97, bicarb 28.6, anion gap 9, BUN 12, creatinine 0.8, GFR greater than 60, glucose 83, osmolality 268, corrected calcium 9.6, magnesium 2.1, AST 19, ALT 9, troponin less than 0.002, BNP 113, albumin 4.6, globulin 2.2 Urinalysis shows trace proteinuria, 4 WBC 5 squamous epithelial cells and 1+ bacteria reflex culture ordered Cervical spine CT negative for any acute fractures, Face CT negative for acute fractures as well and CT scan of the head negative for any acute hemorrhage mass effect or midline shift Patient seen and assessed, had a fall after getting up from bed earlier this morning, does have Parkinson's with dyskinesia and dementia is supposed to use a walker at all times, did not use walker this morning. Is on aspirin, bruising noted on face Orthostatic vitals obtained, orthostatic lying 166/81, sitting 156/82, standing 176/98 hands negative for orthostatic hypotension Was given Hydralazine 10mgx1 Decision made to discharge patient, patient on 5 antihypertensive medications which she will continue taking at home and follow-up with cardiology outpatient. Quality Measures none Orders Category Date Time Status Virtual Assistant For Advertisers Q4H START 00 Care 04/24/25 08:00 Completed Continuous Pulse Oximetry NOW Care 04/24/25 08:00 Completed EKG (ED ONLY) *Do not use* NOW Care 04/24/25 06:29 Completed Orthostatic Vitals NOW Care 04/24/25 08:[address] cervical spine wo con Stat Exams 04/24/25 06:[address] facial bones wo con Stat Exams 04/24/25 06:[address] head/brain wo con Stat Exams 04/24/25 06:29 Completed EKG (ED Only) Stat Exams 04/24/25 06:29 Draft B-Type Natriuretic Peptide Stat Lab 04/24/25 06:36 Completed CBC Stat Lab 04/24/25 06:36 Completed Comprehensive Metabolic Panel Stat Lab 04/24/25 06:36 Completed Magnesium Stat Lab 04/24/25 06:36 Completed Partial Thromboplastin Time Stat Lab 04/24/25 06:36 Completed Prothrombin Time with INR Stat Lab 04/24/25 06:36 Completed Troponin I Stat Lab 04/24/25 06:36 Completed Urinalysis, C/S if Indicated Stat Lab 04/24/25 06:52 Completed Urine Culture Stat Lab 04/24/25 06:52 Received hydrALAZINE INJ [Apresoline Inj] Med 04/24/25 08:38 Discontinued 10 mg IVP X1 ONE Vital Signs Vital signs: Vital Signs Temperature 98.7 F 04/24/25 06:28 Pulse Rate 69 04/24/25 06:28 Respiratory Rate 18 04/24/25 06:28 Blood Pressure 199/96 H 04/24/25 06:28 Pulse Oximetry (%) 96 04/24/25 06:28 Oxygen Delivery Method Room Air 04/24/25 06:28 Head Injury MDM Narrative MDM Narrative:: # Ground-level fall with L sided hematoma on face # Parkinson's disease with dementia and dyskinesia # Hypertensive Urgency Ground-level fall earlier this morning reported injury to the left side of the face, normally uses a walker to ambulate did not use a walker this morning. EKG shows sinus rhythm Rate 61, QTc 393 CBC: WBC 5.4, RBC 3.94, hemoglobin 12.4, hematocrit 35.5, platelet count 145 Coagulation panel: PT 11.4, INR 1.0, APTT 24.6 CMP: Sodium 135, potassium 4.3, chloride 97, bicarb 28.6, anion gap 9, BUN 12, creatinine 0.8, GFR greater than 60, glucose 83, osmolality 268, corrected calcium 9.6, magnesium 2.1, AST 19, ALT 9, troponin less than 0.002, BNP 113, albumin 4.6, globulin 2.2 Urinalysis shows trace proteinuria, 4 WBC 5 squamous epithelial cells and 1+ bacteria reflex culture ordered Cervical spine CT negative for any acute fractures, Face CT negative for acute fractures as well and CT scan of the head negative for any acute hemorrhage mass effect or midline shift Orthostatic vitals obtained, orthostatic lying 166/81, sitting 156/82, standing 176/98 hands negative for orthostatic hypotension Was given Hydralazine 10mgx1 for BP 176/98 Decision made to discharge patient to follow up with hand expansion envelope maker outpatient DC Instructions as below Case discussed with Attending Physician Dr. Maykel Gomez MD Internal Medicine PGY-2 Disclaimer: This note was dictated by speech recognition. Minor errors in mmi teacher may be present due to voice recognition software. Patient data External records reviewed:: [facility] previous records Clinical information provided by:: patient and family Social determinants that could affect healthcare access:: none Patient has the following chronic illnesses:: As Above How is presenting disease/condition affected by chronic disease/condition?: caused by Evaluation data The following diagnostics were reviewed and interpreted by me:: lab results, radiology exam(s) and EKG tracing(s) Lab and/or radiology exams considered but not ordered:: None Interpretation Summary: EKG shows sinus rhythm Rate 61, QTc 393 CBC: WBC 5.4, RBC 3.94, hemoglobin 12.4, hematocrit 35.5, platelet count 145 Coagulation panel: PT 11.4, INR 1.0, APTT 24.6 CMP: Sodium 135, potassium 4.3, chloride 97, bicarb 28.6, anion gap 9, BUN 12, creatinine 0.8, GFR greater than 60, glucose 83, osmolality 268, corrected calcium 9.6, magnesium 2.1, AST 19, ALT 9, troponin less than 0.002, BNP 113, albumin 4.6, globulin 2.2 Urinalysis shows trace proteinuria, 4 WBC 5 squamous epithelial cells and 1+ bacteria reflex culture ordered Cervical spine CT negative for any acute fractures, Face CT negative for acute fractures as well and CT scan of the head negative for any acute hemorrhage mass effect or midline shift Orthostatic vitals obtained, orthostatic lying 166/81, sitting 156/82, standing 176/98 hands negative for orthostatic hypotension Medications / Prescriptions Medications or Prescriptions considered but not ordered:: None Medication administrations:: Medication Administration History Discontinued Medications Hydralazine HCl (Hydralazine Inj 20 Mg/Ml Vial) 10 mg IVP X1 ONE Stop: 04/24/25 08:39 Last Admin: 04/24/25 08:57 Dose: 10 mg Documented By: AA As Above Consultations Consultation(s) initiated? (list below): No Diagnosis Differential diagnosis head injury: epidural hematoma, closed head injury, subarachnoid hematoma and other Most likely diagnosis given after review of the tests above:: Ground-level fall with L sided hematoma on face Parkinson's disease with dementia and dyskinesia Hypertensive Urgency Admission Indicated Admission indicated?: not indicated Admission Request Was there a request for admission?: No Disposition Plan Disposition Plan: Discharge Discharge Attestation Discharge Attestation: The patient and all family members were given an opportunity to ask questions and understood the discharge instructions. Discharge instructions specifically effects, indications for sooner follow up or return to the emergency department, and the expected course of current diagnosis. Patient condition: Stable Discharge Plan Plan Patient Disposition: HOME (Self Care) Patient condition on transfer: Stable Health Concerns: - You came to the emergency department after a fall we did a CT scan of your head face and cervical spine they were all negative for any fractures - Your EKG in the emergency department showed Normal rhythm. - Use walker for ambulating, considering you have Parkinson's disease it is very important that you always use a walker for ambulation to decrease the risk of falls. - Maintain adequate hydration, at least 2 to 3 L of water daily. Practice slow to rise technique. - Continue all your home medications, follow-up with your hand expansion envelope maker Dr. Wilkins for possible Holter monitoring and titration of your blood pressure medication to optimize therapy. - Follow-up with your primary care physician in 1 week - Return to emergency department if your symptoms worsen Prescriptions/Referrals Prescriptions/Med Rec: No Action levothyroxine 50 mcg Capsule 50 mcg PO QDAY glipizide 10 mg Tablet 10 mg PO BID lisinopril 20 mg tablet 20 mg PO BID Patient Comments: TAKE 1 TABLET BY MOUTH DAILY oxcarbazepine 300 mg tablet 1 mg PO TID Patient Comments: TAKE 1 TABLET BY MOUTH THREE TIMES DAILY pravastatin 10 mg tablet 10 mg PO QDAY Patient Comments: TAKE 1 TABLET BY MOUTH EVERY DAY docusate sodium [Colace] 100 mg capsule 100 mg PO BID Qty: 40 0RF hydrocodone-acetaminophen 5-325 mg tablet 1 tab PO Q6H MDD 4 PRN (Reason: pain (scale score 7-10)) Qty: 15 0RF mirtazapine 15 mg Tablet,Disintegrating 15 mg PO HS Linzess 145 mcg Capsule 145 mcg PO BID latanoprost 0.005 % Drops 1 drp OPHTHALMIC (EYE) QDAY clonidine HCl 0.1 mg Tablet 0.1 mg PO TID donepezil 5 mg Tablet 5 mg PO HS labetalol 200 mg Tablet 200 mg PO BID polyethylene glycol 3350 [Miralax] 17 gram Powder In Packet 17 g BID PRN (Reason: Constipation) aspirin 81 mg Tablet,Delayed Release (Dr/Ec) 81 mg PO QDAY timolol 0.5 % Drops 1 drp OPHTHALMIC (EYE) BID ondansetron 4 mg Tablet,Disintegrating 4 mg PO TID PRN (Reason: Nausea) metoclopramide HCl 10 mg Tablet 10 mg PO AC Neupro 4 mg/24 hour Patch 24 Hour 4 mg TOPICAL QDAY hydrochlorothiazide 12.5 mg Tablet 12.5 mg PO QAM Referrals: Arian Hong MD [Primary Care Provider, Family Practice] - In 1 week Radha Hall MD [Physician, Cardiology] - In 1 week Problem List Clinical Impression: Fall, Parkinson disease with dyskinesia Patient/Caregiver Discharge Instructions Discharge Activity: walk with walker only Education Materials: Exercise for Parkinson Disease, Parkinson Disease Caregiver Print Language: Syrian Stand Alone Forms: Zenia Award Info., Patient Portal Info Letter
[2025-04-24 08:48] VITALS: BP 197/93; PULSE 61; PULSE 62; RESP 30; O2SAT 97
[2025-04-24 08:57] VITALS: BP 195/89; PULSE 63
[2025-04-24] MEDS: hydrALAZINE INJ 20 MG/ML VIAL 10 MG IVP (08:57)
[2025-04-24 09:01] LABS: Culture Indicated,Urine Yes
[2025-04-24 09:15] VITALS: BP 156/82; BP 166/81; BP 176/98; PULSE 61; PULSE 63
== END 2025-04-24 10:00 | disposition home or self-care (01) ==
PROVIDERS: Nurse Practitioner Family; Emergency Provider Emergency Medicine; PCP Family Medicine
DX: S00.83XA Contusion of other part of head, initial encounter (principal); S19.9XXA Unspecified injury of neck, initial encounter; S09.90XA Unspecified injury of head, initial encounter; G20.B1 Parkinson's disease with dyskinesia, without mention of fluctuations; I16.0 Hypertensive urgency; I10 Essential (primary) hypertension; F02.80 Dementia in other diseases classified elsewhere, unspecified severity, without behavioral disturbance, psychotic disturbance, mood disturbance, and anxiety; E78.00 Pure hypercholesterolemia, unspecified; R94.31 Abnormal electrocardiogram [ECG] [EKG]; W18.30XA Fall on same level, unspecified, initial encounter
CPT/HCPCS: 36415; 70450; 70486; 72125; 80053; 81001; 83735; 83880; 84484; 85025; 85610; 85730; 87077; 87086; 87186; 93005; 96374; 99284; J0360

== ENCOUNTER 2025-07-12 18:28 | Emergency (ER) | payer MEDICARE, MEDICAID, SELFPAY ==
--- NOTE | 2025-07-12 19:47 | XR_ITS ---
Examination: Ribs, left, with PA chest, 5 views Technique: Chest PA, RIBS AP, RPO, LPO, AP coned lower ribs 5 views Exam date and time: July 12, 20252014 hours INDICATIONS: Patient fell this morning with injury to the left chest, left rib pain Findings: Minor prominence left ventricle Ectatic thoracic aorta. No pneumothorax Prominent osteopenia No acute rib fractures IMPRESSION: No pneumothorax or pulmonary contusion No acute rib fractures
[2025-07-12 20:09] VITALS: BP 105/61; PULSE 62; RESP 18; TEMP 36.9; O2SAT 95
--- NOTE | 2025-07-12 20:14 | EKG_ITS ---
[facility] Test Date: 2025-07-12 Pat Name: LAINA COYNE Department: Room: - Gender: Female Taxicab Coordinator: : 1945 Requested By: Jung Rider Order Number: [id number] Reading MD: Jung Rider Measurements Intervals [place] Rate: 61 P: 45 UT: 168 QRS: -40 QRSD: 102 T: 61 QT: 412 QTc: 416 Interpretive Statements SINUS RHYTHM LEFT AXIS DEVIATION [QRS AXIS < -30] LOW QRS VOLTAGE IN PRECORDIAL LEADS [QRS DEFLECTION < 1.0 mV IN CHEST LEADS] POSSIBLE ANTERIOR MYOCARDIAL INFARCTION , PROBABLY OLD [30 ms Q WAVE IN V3/V4, OR R < 0.2 mV IN V4] Compared to ECG 04/24/2025 06:37:26 Left-axis deviation now present Low QRS voltage now present Myocardial infarct finding still present /store/S0/[id number]/ecg/[id number].pdf
--- NOTE | 2025-07-12 20:14 | XR_ITS ---
Examination: CT cervical spine without contrast 2-D sagittal reconstructions 2-D coronal reconstructions 3-D reconstructions. Exam date and time: April 24, 2025, 1007 hours CTDI:vol (mGy) 15.2 DLP: (mGycm) 285 Technique: Multiple 2 mm axial sections of the cervical spine have been obtained. The coronal and sagittal reconstructions have been obtained. 3-D reconstructions have been obtained. Low dose protocols were performed. One or more of the following dose reduction techniques were used; automated exposure control, adjustment of the mA and/or KV according to patient size, use of iterative reconstruction technique. Findings: Axial sections demonstrate intact base of the skull. C1 exhibit satisfactory relationship to the odontoid. No acute cervical vertebral body fracture seen. Alignment posterior spinous processes satisfactory. Impression: No acute cervical fracture.
--- NOTE | 2025-07-12 20:14 | XR_ITS ---
Examination: CT brain head without contrast. 2-D sagittal coronal reconstructions Date and time of exam: July 12, 2025, 1034 hours INDICATIONS: Head pain today CTDI: vol (mGy): 47.4 DLP: (mGycm): 895 Technique: Multiple CT axial sections of the brain have been obtained, 5 mm slice thickness. Contrast has not been administered. 2-D sagittal, coronal reconstructions have been obtained Low dose protocols were performed. One or more of the following dose reduction techniques were used; automated exposure control, adjustment of the mA and/or KV according to patient size, use of iterative reconstruction technique. Findings: No significant ventricular enlargement. Intra-axial or extra-axial hemorrhage density is not seen. No mass effect or midline shift Basal cisterns are not remarkable. Fourth ventricle is midline. Cranial vault intact. Impression: Negative for acute hemorrhage, mass effect or midline shift
--- NOTE | 2025-07-12 20:16 | PD.EDFALL ---
ED Fall Injury RME/HPI General Chief Complaint: Fall Stated Complaint: FALL THIS AM; PAIN IN L) RIBS 03/19 Time Seen by Provider: 07/12/25 20:09 Arrival date/time: 07/12/25 18:28 79F with history of Parkinson's, DM, and HTN presents to ED with daughter for L rib pain and SOB after unwitnessed fall. Patient was ambulatory afterward. Daughter denies N/V. Limitations: no limitations Related Data Home Medications ?Medication ?Instructions ?Recorded ?Confirmed glipizide 10 mg tablet 10 mg PO BID 04/22/18 08/31/24 levothyroxine 50 mcg capsule 50 mcg PO QDAY 04/22/18 08/31/24 lisinopril 20 mg tablet 20 mg PO BID 09/18/21 08/31/24 oxcarbazepine 300 mg tablet 1 mg PO TID 09/18/21 08/31/24 pravastatin 10 mg tablet 10 mg PO QDAY 09/18/21 08/31/24 aspirin 81 mg tablet,delayed 81 mg PO QDAY 08/26/24 08/31/24 release Held on 09/01/24. Instructions: Resume on 09/04/24. clonidine HCl 0.1 mg tablet 0.1 mg PO TID 08/26/24 08/31/24 donepezil 5 mg tablet 5 mg PO HS 08/26/24 08/31/24 labetalol 200 mg tablet 200 mg PO BID 08/26/24 08/31/24 latanoprost 0.005 % eye drops 1 drp ophthalmic (eye) QDAY 08/26/24 08/31/24 linaclotide 145 mcg capsule 145 mcg PO BID 08/26/24 08/31/24 (Linzess) metoclopramide HCl 10 mg tablet 10 mg PO AC 08/26/24 08/31/24 mirtazapine 15 mg disintegrating 15 mg PO HS 08/26/24 08/31/24 tablet ondansetron 4 mg disintegrating 4 mg PO TID PRN Nausea 08/26/24 08/31/24 tablet polyethylene glycol 3350 17 gram 17 g BID PRN Constipation 08/26/24 08/31/24 oral powder packet (Miralax) rotigotine 4 mg/24 hour 4 mg topical QDAY 08/26/24 08/31/24 transdermal 24 hour patch (Neupro) timolol 0.5 % eye drops 1 drp ophthalmic (eye) BID 08/26/24 08/31/24 hydrochlorothiazide 12.5 mg tablet 12.5 mg PO QAM 08/29/24 08/31/24 Previous Rx's ?Medication ?Instructions ?Recorded docusate sodium 100 mg capsule 100 mg PO BID #40 caps 09/01/24 (Colace) hydrocodone 5 mg-acetaminophen 325 1 tab PO Q6H PRN pain (scale score 09/01/24 mg tablet 7-10) #15 tabs cephalexin 500 mg capsule 500 mg PO TID 7 days #21 caps 07/12/25 Allergies Allergy/AdvReac Type Severity Reaction Status Date / Time No Known Allergies Allergy Verified 07/12/25 18:32 Review of Systems Review of Systems Systems Reviewed: All systems reviewed, normal except as documented Cardiovascular Cardiovascular: Reports as per HPI and Reports chest pain (L rib) Past Medical History Past Medical History NEUROLOGIC: Positive Neurological Disorders, Dementia, Alzheimer's Disease, Parkinson's Disease and Peripheral Neuropathy; Negative Seizures CARDIAC: Positive Hypercholesterolemia, 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) and Hypertension; Negative Cardiac Disorders or Congestive Heart Failure RESPIRATORY: Negative Chronic Obstructive Pulmonary Disease (COPD) or Asthma GASTROINTESTINAL: Positive Gastrointestinal Disorders and Gall Bladder Disease (GALLSTONES); Negative Hepatitis GENITOURINARY: Negative Genitourinary Disorders or Renal Disease MUSCULOSKELETAL: Positive Musculoskeletal Disorders, Arthritis and Rheumatoid Arthritis ENT: Positive Glaucoma; Negative Cataracts ENDOCRINE: Positive Endocrine Disorders, Diabetes Mellitus Type 2 and Hypothyroidism; Negative Diabetes Mellitus Type 1 HEMATOLOGIC: Negative Blood Disorders or Sickle Cell Disease PSYCHO/SOCIAL: Positive Anxiety OTHER HISTORY: Positive Hospitalization (UTI Sepsis, dehydration), Shingles, Falls (FREQUENT) and Chicken Pox; Negative Autoimmune Disease, Blood Transfusions, Blood Transfusion Reaction, Anesthesia Reactions or Cancer Family History FAMILY HISTORY: Positive Family Psychiatric Problems (Dementia), Family Cardiac Disorders, Family Gastrointestinal Problems and Family Surgery; Negative Family Respiratory Disorders, Family Cancer or Family Anesthesia Reaction Surgical History SURGICAL: Positive Bowel Surgery and Section Social History SMOKING STATUS: Never smoker SECOND HAND EXPOSURE: No SUBSTANCE USE: does not use ED Exam General Limitations: Present no limitations General appearance: Present alert and in no apparent distress Head Head exam: Present atraumatic Neck Neck exam: Present normal inspection, full ROM and trachea midline Chest Chest inspection: Present symmetric chest wall rise and tenderness (L rib) Abdominal Exam Abdominal exam: Present soft and normal bowel sounds Extremities Exam Extremities exam: Present normal inspection and full ROM Neurological Exam Neurological exam: Present alert and oriented X3; Absent CN II-XII intact Psychiatric Psychiatric exam: Present normal affect and normal mood Skin Skin exam: Present warm, dry, intact and normal color Course Quality Measures none Orders Category Date Time Status CT Screening NOW Care 07/12/25 21:55 Active EKG (ED ONLY) *Do not use* NOW Care 07/12/25 20:14 Completed Incentive Spirometry Treatment NOW Care 07/12/25 22:48 Active Insert IV NOW Care 07/12/25 21:[address] angio chest Stat Exams 07/12/25 21:[address] cervical spine wo con Stat Exams 07/12/25 20:[address] head/brain wo con Stat Exams 07/12/25 20:14 Completed EKG (ED Only) Stat Exams 07/12/25 20:14 Draft XR ribs LT min 3V w CXR1V Stat Exams 07/12/25 19:47 Completed CBC Stat Lab 07/12/25 21:03 Completed CMP [Comprehensive Metabolic Panel] Stat Lab 07/12/25 21:03 Completed D-Dimer Stat Lab 07/12/25 21:03 Completed Troponin I Stat Lab 07/12/25 21:03 Completed Urinalysis, C/S if Indicated Stat Lab 07/12/25 21:19 Completed Urine Culture Stat Lab 07/12/25 21:19 Received Sodium Chloride 0.9% 1000 ml [Ns] 1,000 ml Med 07/12/25 21:56 Active IV 500 mls/hr cefTRIAXone/D5w 1gm IV premix [Rocephin/D5w 1gm IV Med 07/12/25 22:36 Discontinued premix] 1 gm in 50 ml IV X1 Vital Signs Vital signs: Vital Signs Temperature 98.4 F 07/12/25 20:09 Pulse Rate 62 07/12/25 20:09 Respiratory Rate 18 07/12/25 20:09 Blood Pressure 105/61 07/12/25 20:09 Pulse Oximetry (%) 95 07/12/25 20:09 Oxygen Delivery Method Room Air 07/12/25 20:09 O2 at 95% on RA and WNLs Fall MDM Narrative MDM Narrative:: 79F with history of Parkinson's, DM, and HTN presents to ED with daughter for L rib pain and SOB after unwitnessed fall. Patient was ambulatory afterward. Daughter denies N/V. Physical exam reveals unremarkable extremities. No gross head trauma. Some L rib tenderness. Normal WOB. No ab tenderness. Patient is afebrile, calm, alert, and sitting upright in wheelchair in no distress. EKG in NSR. CT unremarkable except from some non-displaced rib fxs. CMP minimally low Na. Trop normal. D-dimer elevated. CTA no PE. UA some bacteria. Will treat given dementia. Last UC showed moran-senstitive E. coli. Patient data External records reviewed:: [facility] previous records Clinical information provided by:: patient Social determinants that could affect healthcare access:: none Patient has the following chronic illnesses:: Parkinson's, DM, and HTN How is presenting disease/condition affected by chronic disease/condition?: exacerbated by Evaluation data The following diagnostics were reviewed and interpreted by me:: lab results, radiology exam(s) and EKG tracing(s) Lab and/or radiology exams considered but not ordered:: ordered Interpretation Summary: above Medications / Prescriptions Medications or Prescriptions considered but not ordered:: ordered Medication administrations:: Medication Administration History Sodium Chloride (Ns) 1,000 mls @ 500 mls/hr IV .Q2H ONE Stop: 07/12/25 23:55 Last Admin: 07/12/25 22:51 Dose: 500 mls/hr Documented By: WOLF Discontinued Medications Ceftriaxone Sodium/Dextrose (Rocephin/D5w 1gm Iv Premix) 1 gm in 50 mls @ 100 mls/hr IV X1 ONE Stop: 07/12/25 23:05 Last Admin: 07/12/25 22:49 Dose: 100 mls/hr Documented By: WOLF above Consultations Consultation(s) initiated? (list below): No Diagnosis Fall Differential Diagnosis: syncope, dislocation of shoulder region, fracture of wrist, compression fracture, concussion with loss of consciousness, concussion without loss of consciousness and other (rib fx, ACS, PE, CHI, brain bleed, UTI) Most likely diagnosis given after review of the tests above:: rib fx and UTI Admission Indicated Admission indicated?: not indicated Admission Request Was there a request for admission?: No Disposition Plan Disposition Plan: Discharge Discharge Attestation Discharge Attestation: The patient and all family members were given an opportunity to ask questions and understood the discharge instructions. Discharge instructions specifically effects, indications for sooner follow up or return to the emergency department, and the expected course of current diagnosis. Patient condition: Stable Discharge Plan Plan Patient Disposition: HOME (Self Care) Discharge Disposition comment: Stable Prescriptions/Referrals Prescriptions/Med Rec: New cephalexin 500 mg capsule 500 mg PO TID 7 Days Qty: 21 0RF No Action levothyroxine 50 mcg Capsule 50 mcg PO QDAY glipizide 10 mg Tablet 10 mg PO BID lisinopril 20 mg tablet 20 mg PO BID Patient Comments: TAKE 1 TABLET BY MOUTH DAILY oxcarbazepine 300 mg tablet 1 mg PO TID Patient Comments: TAKE 1 TABLET BY MOUTH THREE TIMES DAILY pravastatin 10 mg tablet 10 mg PO QDAY Patient Comments: TAKE 1 TABLET BY MOUTH EVERY DAY docusate sodium [Colace] 100 mg capsule 100 mg PO BID Qty: 40 0RF hydrocodone-acetaminophen 5-325 mg tablet 1 tab PO Q6H MDD 4 PRN (Reason: pain (scale score 7-10)) Qty: 15 0RF mirtazapine 15 mg Tablet,Disintegrating 15 mg PO HS Linzess 145 mcg Capsule 145 mcg PO BID latanoprost 0.005 % Drops 1 drp OPHTHALMIC (EYE) QDAY clonidine HCl 0.1 mg Tablet 0.1 mg PO TID donepezil 5 mg Tablet 5 mg PO HS labetalol 200 mg Tablet 200 mg PO BID polyethylene glycol 3350 [Miralax] 17 gram Powder In Packet 17 g BID PRN (Reason: Constipation) aspirin 81 mg Tablet,Delayed Release (Dr/Ec) 81 mg PO QDAY timolol 0.5 % Drops 1 drp OPHTHALMIC (EYE) BID ondansetron 4 mg Tablet,Disintegrating 4 mg PO TID PRN (Reason: Nausea) metoclopramide HCl 10 mg Tablet 10 mg PO AC Neupro 4 mg/24 hour Patch 24 Hour 4 mg TOPICAL QDAY hydrochlorothiazide 12.5 mg Tablet 12.5 mg PO QAM Referrals: Arian Hong MD [Primary Care Provider, Family Practice] - In 1 week Problem List Clinical Impression: Acute UTI, Fracture of rib Patient/Caregiver Discharge Instructions Education Materials: ED Rib Fracture, ED CYSTITIS Female Adult Additional Instructions: Please follow-up with PCP within 24-48 hours and return immediately if symptoms worsen. Print Language: Romanian Stand Alone Forms: Patient Portal Info Letter PA/DCS ENGINEER Supervising Physician ABIMAEL/DCS ENGINEER Supervising Physician: Dr. Hennessy
[2025-07-12 21:33] LABS: Basophils # (Auto) 0.0 Thou/mm3 (0.0-0.2); Basophils % (Auto) 0 % (0-2.5); Eosinophils # (Auto) 0.1 Thou/mm3 (0.0-0.5); Eosinophils % (Auto) 1 % (0-10); Hematocrit 31.0 % (36.0-46.0); Hemoglobin 10.7 g/dL (12.0-16.0); Immature Granulocytes Auto 0.02 Thou/mm3 (0.00-0.00); Lymphocytes # (Auto) 0.7 Thou/mm3 (1.0-4.8); Lymphocytes % (Auto) 12 % (10-50); Mean Corpuscular HGB Conc 34.5 g/dl (31.0-37.0); Mean Corpuscular Hemoglobin 31.0 pg (25.0-35.0); Mean Corpuscular Volume 90 fL (80-100); Monocytes # (Auto) 0.6 Thou/mm3 (0.0-0.8); Monocytes % (Auto) 9 % (0-12); Neutrophils # (Auto) 4.7 Thou/mm3 (1.8-7.7); Neutrophils % (Auto) 77 % (37-80); Nucleated Red Blood Cell # 0.00 Thou/mm3 (0.00-0.00); Nucleated Red Blood Cell % 0 /100 WBC (0); Platelet Count 120 Thou/mm3 (140-440); RDW Standard Deviation 40.9 fL (36.4-46.3); Red Blood Count 3.45 Miln/mm3 (4.00-5.20); White Blood Count 6.1 Thou/mm3 (3.6-11.0)
[2025-07-12 21:47] LABS: Collection Type, Urine Clean Catch
[2025-07-12 21:47] LABS: D-Dimer 2140 ng/mL (<600)
[2025-07-12 21:55] LABS: Alanine Aminotransferase 10 U/L (10-49); Albumin, Serum 4.4 gm/dL (3.4-4.8); Albumin/Globulin Ratio 2.0 (1.2-2.2); Alkaline Phosphatase 82 U/L (46-116); Anion Gap 8 (7-16); Aspartate Amino Transferase 20 U/L (0-34); BUN/Creatinine Ratio 16 Ratio (12-20); Bilirubin,Total 0.3 mg/dL (0.3-1.2); Blood Urea Nitrogen 14 mg/dL (9-23); Calcium 8.5 mg/dL (8.3-10.6); Calcium (Corrected) 8.5 mg/dL (8.5-10.1); Carbon Dioxide 26.5 mMol/L (20.0-31.0); Chloride 97 mMol/L (98-107); Creatinine (Component) 0.9 mg/dL (0.6-1.3); Globulin 2.2 gm/dL (2.3-3.5); Glucose 217 mg/dL (74-106); Osmolality,Calculated 270 (275-295); Potassium 3.5 mMol/L (3.4-5.1); Sodium 131 mMol/L (136-145); Total Protein 6.6 gm/dL (5.7-8.2); Troponin I < 0.020 ng/mL (0.0-0.045); eGFR > 60 See Note
--- NOTE | 2025-07-12 21:55 | XR_ITS ---
Examination: CTA chest with intravenous contrast 2-D reconstructions 3-D reconstructions, vascular Date and time of exam: July 12, 2025, 1014 hours INDICATIONS: Patient fell this morning with injury to the chest, chest pain CTDI: vol (mGy) 13.2 DLP: (mGycm) 485 Technique: Multiple axial sections of the thorax have been obtained. 3 mm slice thickness, from below the hemidiaphragms to above the apices of the lungs. Mediastinal and lung density settings have been obtained. 2-D sagittal and coronal reconstructions. 3-D angiographic renderings, 3-D volume renderings, 3D post processing, vascular maximum intensity projections obtained. Contrast administered is 100 cc Isovue-370. Low dose protocols were performed. One or more of the following dose reduction techniques were used; automated exposure control, adjustment of the mA and/or KV according to patient size, use of iterative reconstruction technique. Findings: Thoracic aorta pulmonary arteries intact No pulmonary artery emboli Heavy calcification left anterior ascending left circumflex right coronary arteries Mild enlargement cardiac contour No pneumonia pneumothorax or pulmonary edema Sternal segment intact No acute thoracic fracture Acute appearing nondisplaced fractures left sixth and seventh ribs in the midaxillary line Suspicious for nondisplaced acute fracture right sixth rib anteriorly No visualized liver or splenic lesion Absent gallbladder No pancreatic or adrenal mass No hydronephrosis IMPRESSION: Negative for pulmonary artery emboli No pneumonia or pulmonary edema or pneumothorax Acute appearing nondisplaced fractures left sixth and seventh ribs in the midaxillary line Suspicious for nondisplaced acute fracture right sixth rib anteriorly
[2025-07-12 22:20] LABS: Bacteria,Urine 3+; Bilirubin,Urine Negative (Negative); Blood,Urine Negative (Negative); Clarity,Urine Turbid (Clear/Hazy); Color,Urine Yellow (Lt Yel-Yel); Glucose, Urine Negative (Negative); Hyaline Casts,Urine 1 /hpf (0-1); Ketones,Urine Negative (Negative); Leukocyte Esterase,Urine Positive (Negative); Nitrite,Urine Negative (Negative); PH,Urine 6.0 (5.0-7.0); Protein,Urine 1+ (Neg - Trace); RBC,Urine 8 /hpf (0-3); Specific Gravity,Urine 1.026 (1.001-1.035); Squamous Epithelial Cell,Urine 8 /hpf (0-5); Urobilinogen,Urine 2.0 mg/dL (0.0-1.0); WBC,Urine 45 /hpf (0-5)
[2025-07-12 22:27] LABS: Culture Indicated,Urine Yes
[2025-07-12] MEDS: cefTRIAXone/D5w 1gm IV premix 1 GM/50 ML BAG IV (22:49)
[2025-07-12] MEDS: SODIUM CHLORIDE 0.9% 1000 ML 1,000 ML 500 ML IV (22:51)
--- NOTE | 2025-07-12 23:04 | PC.RT ---
Instructed pt on how to use IS. Pt obtaining volumes of 500.
[2025-07-12 23:09] VITALS: BP 152/78; PULSE 56; RESP 18; TEMP 36.7; O2SAT 98
[2025-07-12 23:53] VITALS: RESP 16
== END 2025-07-12 23:54 | disposition home or self-care (01) ==
PROVIDERS: Physician Assistant; Emergency Provider Emergency Medicine; PCP Family Medicine
DX: S22.42XA Multiple fractures of ribs, left side, initial encounter for closed fracture (principal); N39.0 Urinary tract infection, site not specified; R51.9 Headache, unspecified; R94.31 Abnormal electrocardiogram [ECG] [EKG]; W19.XXXA Unspecified fall, initial encounter; I10 Essential (primary) hypertension; E78.00 Pure hypercholesterolemia, unspecified; G30.9 Alzheimer's disease, unspecified; F02.80 Dementia in other diseases classified elsewhere, unspecified severity, without behavioral disturbance, psychotic disturbance, mood disturbance, and anxiety; G20.A1 Parkinson's disease without dyskinesia, without mention of fluctuations
CPT/HCPCS: 36415; 70450; 71101; 71275; 72125; 80053; 81001; 84484; 85025; 85379; 87077; 87086; 87186; 93005; 96365; 99284; A4649; J0696; J7030; Q9967